=== PATIENT | male | born 1975 | race Caucasian/White ===

== ENCOUNTER → 2019-04-09 | Outpatient (CLI) | payer BC ==
--- NOTE | 2019-04-09 18:58 | KCIC ---
PROCEDURE: SHOULDER 2+V RIGHT, CERVICAL SPINE 5V STUDY DATE: 04/09/2019 CLINICAL INDICATION / HISTORY: Chronic neck and right shoulder pain. TECHNIQUE: AP, bilateral oblique, lateral and odontoid views of the cervical spine were obtained. COMPARISON: None FINDINGS: Alignment is within normal limits. There is minimal straightening of the normal cervical lordosis. Vertebral body heights and disc spaces are well maintained. There is suggestion of minimal uncovertebral spurring at C5-C6. The atlantoaxial joint is well maintained. No fracture or subluxation is identified. Prevertebral and paraspinous soft tissues are unremarkable. IMPRESSION: No evidence of fracture or subluxation in the cervical spine. Minimal degenerative changes in the lower cervical spine. PROCEDURE: SHOULDER 2+V RIGHT, CERVICAL SPINE 5V STUDY DATE: 04/09/2019 CLINICAL INDICATION / HISTORY: Chronic right shoulder pain. TECHNIQUE: AP internal and external rotation views with a Y- view were obtained. COMPARISON: C-spine x-rays same day FINDINGS: No fracture, dislocation or bone destruction is identified. There are no degenerative changes at the right AC joint. No calcifications are seen in relation to the rotator cuff insertion. IMPRESSION: No acute osseous abnormality. Electronically signed by: Yael Coleman MD (04/09/2019 6:55 PM) [facility]
== END | disposition home or self-care (01) ==
LOC: KCIC 14:37
PROVIDERS: ATTEND Family Medicine
DX: M47.812 Spondylosis without myelopathy or radiculopathy, cervical region (principal); M25.511 Pain in right shoulder
CPT/HCPCS: 72050; 73030